=== PATIENT | male | born 1935 | race Caucasian/White ===

== ENCOUNTER 2017-12-23 20:11 | Emergency (ER) | payer OTHER, MEDICARE ==
[~2017-12-23] VITALS: Ht 167.6 cm; Wt 102.2 kg
[~2017-12-23 20:11] MED LIST: ASPIR-TRIN325 M1 PO; CARDURA8 MG PO; Dyazide, Maxzide 37. PO; FEOSOL325 MG PO; FIBER FORCE PO; HERBAL LAXATIVE PO; Prilosec PO; Proventil,Ventolin H IH; Pulmicort 180 microg IH; SENOKOT S,PE1 TABLET PO; Saw Palmetto PO; Singulair PO; THERAGRAN1 TABLET PO; VESICARE5 MG PO; Vicodin,Lortab 5/500 PO; ZESTRIL,PRINIVI10 M1 PO
[2017-12-23 20:55] LABS: HEMATOCRIT 40.7 % (38.0-50.0); HEMOGLOBIN 14.3 G/DL (12.5-16.6); MCH 33.6 PG (29.0-34.0); MCHC 35.1 G/DL (30.0-36.0); MCV 95.5 FL (86-99); PLATELET COUNT 184 K/uL (156-360); RBC DIS.WIDTH-CV 12.5 % (11.8-14.6); RBC DIS.WIDTH-SD 44.1 % (39-53); RED BLOOD COUNT 4.26 M/uL (4.00-5.50); WHITE BLOOD COUNT 8.2 K/uL (4.1-10.2)
[2017-12-23 21:07] LABS: ALBUMIN 4.1 g/dL (3.2-4.8); CHLORIDE 103 mEq/L (99-109); POTASSIUM 3.8 mEq/L (3.7-5.4); SODIUM 141 mEq/L (136-147)
[2017-12-23 21:10] LABS: GLUCOSE 128 mg/dL (70-99); TOTAL PROTEIN 6.8 g/dL (6.4-8.3)
[2017-12-23 21:12] LABS: TOTAL BILIRUBIN 0.8 mg/dL (0.0-1.0)
[2017-12-23 21:13] LABS: ALKALINE PHOSPHATASE 102 IU/L (3-129); CREATININE 1.6 mg/dL (0.6-1.3); GFR ESTIMATE (CALCULATED) 44 mL/min/ (58.99-99999)
[2017-12-23 21:14] LABS: UREA NITROGEN (BUN) 26 mg/dL (9-23)
[2017-12-23 21:15] LABS: AST (GOT) 20 IU/L (2-34)
[2017-12-23 21:16] LABS: ALT (GPT) 16 IU/L (3-49)
[2017-12-23 21:40] LABS: PTT 28.5 SEC (25-37)
[2017-12-23 21:48] LABS: LIPASE 9 U/L (1.0-51.0)
[2017-12-23 21:51] LABS: TROP-I INTERPRETATION NEGATIVE; TROPONIN-I < 0.01 ng/mL (0.0-0.30)
[2017-12-23 22:32] LABS: APPEARANCE CLEAR ((CLEAR)); BILIRUBIN NEGATIVE; BLOOD NEGATIVE; COLOR YELLOW ((YELLOW)); GLUCOSE (STRIP) NEGATIVE; KETONES 20; LEUKOCYTES NEGATIVE; NITRITE NEGATIVE; PROTEIN (STRIP) NEGATIVE; SPECIFIC GRAVITY 1.017 (1.000-1.030); UCUL ADDED? NO; UROBILINOGEN 0.2 MG/DL (0.2-1.0)
[2017-12-23 23:30] VITALS: BP 148/71
== END 2017-12-23 23:30 | disposition home or self-care (01) ==
LOC: EME 20:11
PROVIDERS: Emergency Medicine
DX: N13.2 Hydronephrosis with renal and ureteral calculous obstruction (principal); I10 Essential (primary) hypertension; K21.9 Gastro-esophageal reflux disease without esophagitis; J45.909 Unspecified asthma, uncomplicated; Z79.82 Long term (current) use of aspirin; Z87.19 Personal history of other diseases of the digestive system; Z86.79 Personal history of other diseases of the circulatory system; Z85.828 Personal history of other malignant neoplasm of skin; Z88.0 Allergy status to penicillin
CPT/HCPCS: 74177; 80053; 81003; 83605; 83690; 83880; 84153; 84484; 85027; 85610; 85730; 99281; 99285; J1200; J1885; J2765

== ENCOUNTER → 2017-12-24 | Outpatient (CLI) | payer MEDICARE | END | disposition home or self-care (01) | LOC: CDC 12:03 | DX: Z01.810 Encounter for preprocedural cardiovascular examination (principal); R94.31 Abnormal electrocardiogram [ECG] [EKG] | CPT/HCPCS: 93000 ==

== ENCOUNTER 2018-01-01 10:38 | Day surgery (SDC) | payer OTHER, MEDICARE ==
[~2018-01-01] VITALS: Ht 167.6 cm; Wt 101.0 kg
[~2018-01-01 10:38] MED LIST changes: +CARDURA4 MG PO; +COLCRYS0.6 MG PO; +DITROPAN XL10 MG PO; +LASIX40 MG PO; +PRILOSEC20 MG PO; +PRINIVIL5 MG PO; +PROAIR HFA8.5 GM IH; +PULMICORT FLE180 MCG IH; +SINGULAIR10 MG PO; +TIROSINT75 MCG PO
[2018-01-01 11:58] VITALS: BP 138/64
[2018-01-01 14:28] VITALS: BP 164/75
[2018-01-01 15:30] VITALS: BP 149/65
[2018-01-01 16:35] VITALS: BP 150/67
== END 2018-01-01 16:35 | disposition home or self-care (01) ==
LOC: SDC 10:38
PROC: 0TF78ZZ Fragmentation in Left Ureter, Via Natural or Artificial Opening Endoscopic (ICD-10-PCS; principal; 2018-01-01)
PROC: 0T778DZ Dilation of Left Ureter with Intraluminal Device, Via Natural or Artificial Opening Endoscopic (ICD-10-PCS; principal; 2018-01-01)
DX: N20.1 Calculus of ureter (principal); I10 Essential (primary) hypertension; E03.9 Hypothyroidism, unspecified; Z68.37 Body mass index [BMI] 37.0-37.9, adult
CPT/HCPCS: 87641; C1769; C2625; J0690; J1100; J2405; J3010